=== PATIENT | male | born 1980 | race Caucasian/White ===

== ENCOUNTER 2016-08-19 09:15 | Emergency (ER) | payer BC ==
[~2016-08-19] VITALS: Ht 203.2 cm; Wt 136.1 kg
[~2016-08-19 09:15] MED LIST: ALLEGRA D 12 HO1 TER PO; ANAPROX DS550 MG PO; BACTRIM DS 8001 TA1 PO; BENTYL10 MG PO; BIAXIN500 MG PO; CEPHALEXIN500 M1 PO; CLARITIN10 MG PO; DARVOCET N 1001 TAB PO; DAYPRO600 M1 PO; KEFLEX500 MG PO; LEVOFLOXACIN500 MG PO; MEDROL DOSEPAK4 MG PO; MOTRIN800 MG PO; NKHM; PERCOCET 325 MG1 TA7 PO; PROVENTIL0.09 MG/AC IH; ROBAXIN750 MG PO; ROBITUSSIN AC 110 ML PO; SEPTRA DS 800 M1 TAB PO; VIBRAMYCIN100 MG PO; VICODIN 500 MG-1 TAB PO; VICODIN ES 7501 TAB PO; ZOFRAN4 MG PO
[2016-08-19 09:58] LABS: BASO # 0.1 10*3/uL (0.0-0.1); EOS # 0.1 10*3/uL (0.0-0.4); EOS % 1.7 % (1.0-4.0); HEMATOCRIT 47.7 % (42.0-52.0); HEMOGLOBIN 16.6 g/dl (14.0-18.0); LYMPH # 1.5 10*3/uL (1.3-4.4); LYMPH % 20.9 % (27.0-41.0); MEAN CELL VOLUME 88.5 fl (80.0-94.0); MEAN CORPUSCULAR HGB 30.8 pg (27.0-31.0); MEAN CORPUSCULAR HGB CONC 34.8 g/dl (33.0-37.0); MEAN PLATELET VOLUME 9.9 fl (9.6-12.3); MONO # 0.8 10*3/uL (0.1-1.0); MONO % 11.2 % (3.0-9.0); NEUT # 4.6 10*3/uL (2.3-7.9); NEUT % 64.9 % (47.0-73.0); PLATELET COUNT AUTOMATED 245 10*3/uL (130-400); RED BLOOD COUNT 5.39 10*6/uL (4.50-5.90); RED CELL DISTRI WIDTH 12.1 % (0-14.5); WHITE BLOOD COUNT 7.1 10*3/uL (4.8-10.8)
[2016-08-19 10:18] LABS: ALBUMIN 3.8 gm/dl (3.1-4.5); ALKALINE PHOSPHATASE 41 U/L (45-117); BILIRUBIN, TOTAL 0.7 mg/dl (0.2-1.0); BUN 15 mg/dl (7-24); CARBON DIOXIDE 26 mmol/L (21-32); CHLORIDE 108 mmol/L (98-107); EST GLOM FILT AFRICAN AMERICAN > 60 ml/min; GLUCOSE 79 mg/dL (65-99); POTASSIUM 4.4 mmol/L (3.5-5.1); SGOT/AST 17 IU/L (3-35); SGPT/ALT 42 U/L (12-78); SODIUM 141 mmol/L (136-145); TOTAL PROTEIN 7.3 gm/dL (6.4-8.2)
[2016-08-19] MEDS ORDERED: MEDROL DOSEPAK4 MG PO (12:57)
[2016-08-19] MEDS ORDERED: OMNICEF300 MG PO (12:57)
== END 2016-08-19 13:00 | disposition home or self-care (01) ==
LOC: ED 09:15
PROVIDERS: Nurse Practitioner Family
DX: J02.0 Streptococcal pharyngitis (principal); F17.200 Nicotine dependence, unspecified, uncomplicated

== ENCOUNTER → 2017-01-06 | Outpatient (CLI) | payer BC ==
[~2017-01-06] MED LIST changes: +OMNICEF300 MG PO
== END | disposition home or self-care (01) ==
LOC: LAB 10:50
DX: I10 Essential (primary) hypertension (principal); R53.82 Chronic fatigue, unspecified; E55.9 Vitamin D deficiency, unspecified; R73.9 Hyperglycemia, unspecified

== ENCOUNTER → 2017-01-11 | Outpatient (CLI) | payer BC | END | disposition home or self-care (01) | LOC: US 14:44 | DX: N28.1 Cyst of kidney, acquired (principal); I10 Essential (primary) hypertension; N32.89 Other specified disorders of bladder ==

== ENCOUNTER → 2020-12-22 | Outpatient (CLI) | payer BC | END | disposition home or self-care (01) | LOC: US 08:27 | PROVIDERS: ATTEND Nurse Practitioner Family | DX: R74.8 Abnormal levels of other serum enzymes (principal) ==

== ENCOUNTER → 2023-02-02 | Outpatient (CLI) | payer BC | END | disposition home or self-care (01) | LOC: RAD 15:03 | PROVIDERS: ATTEND Nurse Practitioner Family | DX: R35.0 Frequency of micturition (principal) ==

== ENCOUNTER → 2024-01-12 | Outpatient (CLI) | payer OTHER ==
[2024-01-12 10:24] LABS: BASO # 0.1 10*3/uL (0.0-0.1); BASO % 1.1 % (0.0-1.0); EOS # 0.1 10*3/uL (0.0-0.4); EOS % 1.3 % (1.0-4.0); HEMATOCRIT 54.4 % (42.0-52.0); LYMPH # 1.4 10*3/uL (1.3-4.4); MEAN CELL VOLUME 89.9 fl (80.0-94.0); MEAN CORPUSCULAR HGB 31.9 pg (27.0-31.0); MEAN CORPUSCULAR HGB CONC 35.5 g/dl (33.0-37.0); MEAN PLATELET VOLUME 9.6 fl (9.6-12.3); MONO # 0.6 10*3/uL (0.1-1.0); MONO % 10.5 % (3.0-9.0); NEUT # 3.2 10*3/uL (2.3-7.9); NEUT % 59.7 % (47.0-73.0); PLATELET COUNT AUTOMATED 205 10*3/uL (130-400); RED BLOOD COUNT 6.05 10*6/uL (4.50-5.90); RED CELL DISTRI WIDTH 12.2 % (0-14.5); WHITE BLOOD COUNT 5.3 10*3/uL (4.8-10.8)
[2024-01-12 10:48] LABS: ALKALINE PHOSPHATASE 30 U/L (46-116); BUN 13 mg/dl (9-23); CHLORIDE 103 mmol/L (98-107); CHOLESTEROL 145 mg/dL (<200); LDL CHOLESTEROL 77 mg/dL (9-159); POTASSIUM 4.4 mmol/L (3.4-5.1); SGPT/ALT 57 U/L (5-49); TRIGLYCERIDES 189 mg/dl (<150)
[2024-01-17 20:07] LABS: TESTOSTERONE FREE, (DIRECT) 4.7 pg/mL (6.8-21.5)
== END | disposition home or self-care (01) ==
LOC: LAB 09:53
PROVIDERS: ATTEND Nurse Practitioner Family
DX: I10 Essential (primary) hypertension (principal); R71.8 Other abnormality of red blood cells; R35.0 Frequency of micturition; Z87.891 Personal history of nicotine dependence

== ENCOUNTER → 2024-01-30 | Outpatient (CLI) | payer OTHER ==
[2024-01-30 09:34] LABS: VITAMIN D, 25-HYDROXY 36.4 ng/mL (30-100)
== END | disposition home or self-care (01) ==
LOC: LAB 08:48
PROVIDERS: Student in an Organized Health Care Education/Training Program; ATTEND Internal Medicine Endocrinology, Diabetes & Metabolism
DX: E55.9 Vitamin D deficiency, unspecified (principal); E21.3 Hyperparathyroidism, unspecified; E29.1 Testicular hypofunction